=== PATIENT | male | born 1980 | race Hispanic/Latino ===

== ENCOUNTER 2017-01-29 13:11 | Emergency (ER) | payer BC ==
[2017-01-29 15:41] VITALS: BP 133/97
[2017-01-29] MEDS ORDERED: ZOFRAN IV ONE (15:41)
[2017-01-29] MEDS ORDERED: TORADOL IV ONE (15:41)
[2017-01-29 16:11] LABS: Bilirubin,Urine NEG (Negative); Blood,Urine MOD (Negative); Ketones,Urine NEG (Negative); Leukocyte Esterase,Urine TR (Negative); Mucus,Urine FEW /HPF; Nitrite,Urine NEG (Negative); Protein,Urine <15 mg/dL mg/dL (Negative); Urobilinogen,Urine < 2.0 mg/dL (<2.0)
[2017-01-29 16:17] LABS: Basophils % (Auto) 0.4 % (0.0-1.8); Eosinophils % (Auto) 1.1 % (0.0-4.3); Hematocrit 41.3 % (35.5-45.6); Hemoglobin 14.2 gm/dl (11.8-15.2); Mean Corpuscular HGB Conc 34 % (32-34); Mean Corpuscular Hemoglobin 30 pg (28-32); Mean Corpuscular Volume 87 fl (84-94); Platelet Count 249 K/mm3 (140-440); Red Blood Count 4.74 M/mm3 (3.65-5.03); Red Cell Distribution Width 12.5 % (13.2-15.2); White Blood Count 11.5 K/mm3 (4.5-11.0)
--- NOTE | 2017-01-29 16:34 | Cat Scan Report ---
CT scan of the abdomen and pelvis without IV contrast: Findings: Normal liver spleen and pancreas. Normal gallbladder. Normal adrenals. Nonobstructing 1 mm and 2 mm calculus left kidney. Nonobstructing 1 mm and 2 mm calculus right kidney. There is 6 mm calculus at the right UV junction with proximal hydronephrosis. No free intraperitoneal fluid or air. Grossly bowel gas pattern normal. No evidence of adenopathy. Impression: Nonobstructing calculi right and left kidney. 6 mm calculus right UV junction with hydronephrosis proximally.
[2017-01-29 16:36] LABS: Alanine Aminotransferase 59 units/L (7-56); Albumin 4.2 g/dL (3.9-5); Albumin/Globulin Ratio 1.2 %; Alkaline Phosphatase 58 units/L (35-129); Anion Gap 17 mmol/L; BUN/Creatinine Ratio 17.77; Bilirubin,Total 1.1 mg/dL (0.1-1.2); Blood Urea Nitrogen 16 mg/dL (9-20); Calcium 9.1 mg/dL (8.4-10.2); Carbon Dioxide 23 mmol/L (22-30); Chloride 98.8 mmol/L (98-107); Glucose 101 mg/dL (75-100); Sodium 135 mmol/L (137-145); Total Protein 7.6 g/dL (6.3-8.2)
--- NOTE | 2017-01-30 14:23 | ED Elopement Review ---
ED Pt Elopement review - Results review Lab results: Laboratory Tests 01/29/17 01/29/17 01/29/17 15:59 15:59 Unknown WBC 11.5 H RBC 4.74 Hgb 14.2 Hct 41.3 MCV 87 MCH 30 MCHC 34 RDW 12.5 L Plt Count 249 Lymph % (Auto) 21.0 Starr % (Auto) 9.0 H Eos % (Auto) 1.1 Baso % (Auto) 0.4 Lymph # 2.4 Starr # 1.0 H Eos # 0.1 Baso # 0.0 Seg Neutrophils % 68.5 Seg Neutrophils # 7.9 H Sodium 135 L Potassium 4.0 Chloride 98.8 Carbon Dioxide 23 Anion Gap 17 BUN 16 Creatinine 0.9 Estimated GFR > 60 BUN/Creatinine Ratio 17.77 Glucose 101 H Calcium 9.1 Total Bilirubin 1.1 AST 23 ALT 59 H Alkaline Phosphatase 58 Total Protein 7.6 Albumin 4.2 Albumin/Globulin Ratio 1.2 Urine Color Straw Urine Turbidity Clear Urine pH 6.0 Ur Specific [place] 1.006 Urine Protein <15 mg/dl Urine Glucose (UA) Neg Urine Ketones Neg Urine Blood Mod Urine Nitrite Neg Urine Bilirubin Neg Urine Urobilinogen < 2.0 Ur Leukocyte Esterase Tr Urine WBC (Auto) 6.0 Urine RBC (Auto) 3.0 Urine Mucus Few - Call Back decision Pt Call Back Decision: Pt to F/U with PMD (6 mm stone with hydronephrosis and tachycardia should be further evaluated. Patient should follow up in a facility with urology capability)
== END 2017-01-29 23:45 | disposition left against medical advice (07) ==
LOC: ED 13:11
DX: M54.9 Dorsalgia, unspecified (principal); R10.9 Unspecified abdominal pain; Z91.011 Allergy to milk products; Z53.21 Procedure and treatment not carried out due to patient leaving prior to being seen by health care provider
CPT/HCPCS: 36415; 74176; 80053; 81001; 85025; 96374; 96375; J1885; J2405